=== PATIENT | female | born 1965 | race Caucasian/White ===

== ENCOUNTER 2016-10-18 09:57 | Emergency (ER) | payer BC ==
[2016-10-18 11:01] VITALS: BP 96/61
--- NOTE | 2016-10-18 11:53 | UC ---
Respiratory Complaint HPI - HPI Summary HPI Summary: PATIENT PRESENTS WITH 4 DAYS OF WORSENING THROAT PAIN, SINUS PRESSURE, NAJERA, EAR PAIN AND CONGESTION. COUGH IS PRESENT, BUT WORSE AT NIGHT AND NON-PRODUCTIVE. ENDORSES SICK CONTACTS WHO HAVE HAD URI'S. DENIES HX OF PNA. OTHERWISE HEALTHY. TAKES ESTROGEN THERAPY DAILY. SHE DENIES ALLERGIES. PATIENT ENDORSES DYSPHAGIA AND THROAT REDNESS, BUT DENIES SOB OR CHEST PAIN. - History of Current Complaint Chief Complaint: UCRespiratory Stated Complaint: RESP COMPLAINT Time Seen by Provider: 10/18/16 11:15 Hx Obtained From: Patient ?: No Onset/Duration: Sudden Onset Timing: Constant Severity Initially: Moderate Severity Currently: Moderate Pain Intensity: 7 Pain Scale Used: 0-10 Numeric Character: Cough: Nonproductive Alleviating Factors: Nothing Associated Signs And Symptoms: Positive: Nasal Congestion, Hoarseness, Sinus Discomfort - Risk Factors Pulmonary Embolism Risk Factors: Estrogen Cardiac Risk Factors: Negative Pseudomonas Risk Factors: Negative Tuberculosis Risk Factors: Negative - Allergies/Home Medications Allergies/Adverse Reactions: Allergies Allergy/AdvReac Type Severity Reaction Status Date / Time Sulfa Antibiotics Allergy See Comment Verified 10/18/16 11:00 PMH/Surg Hx/FS Hx/Imm Hx Previously Healthy: Yes - Surgical History Surgical History: None - Family History Known Family History: Positive: Unknown - Social History Occupation: Employed Full-time Lives: With Family Alcohol Use: Daily Alcohol Amount: 1/2 beers Substance Use Type: None Smoking Status (MU): Never Smoked Tobacco Review of Systems Constitutional: Negative Skin: Negative ENT: Sore Throat, Nasal Discharge Respiratory: Cough Cardiovascular: Negative Gastrointestinal: Negative Neurovascular: Negative Musculoskeletal: Negative Neurological: Negative Psychological: Negative All Other Systems Reviewed And Are Negative: Yes Physical Exam Triage Information Reviewed: Yes Appearance: Well-Appearing, No Pain Distress, Well-Nourished Vital Signs: Initial Vital Signs Temp 99.2 F 10/18/16 11:00 Pulse 105 10/18/16 11:00 Resp 16 10/18/16 11:00 BP 96/61 10/18/16 11:00 Pulse Ox 100 10/18/16 11:00 Vital Signs Reviewed: Yes Eyes: Positive: Conjunctiva Inflamed ENT: Positive: Pharyngeal erythema, Nasal congestion, TMs normal, Tonsillar swelling Dental Exam: Normal Neck exam: Normal Neck: Positive: Supple, Nontender, No Lymphadenopathy Respiratory Exam: Normal Respiratory: Positive: Chest non-tender, Lungs clear Cardiovascular Exam: Normal Cardiovascular: Positive: RRR Musculoskeletal Exam: Normal Musculoskeletal: Positive: Strength Intact Neurological Exam: Normal Neurological: Positive: Alert Psychological: Positive: Normal Response To Family Skin Exam: Normal Diagnostic Evaluation - Laboratory O2 Sat by Pulse Oximetry: 100 Respiratory Course/Dx - Course Course Of Treatment: PATIENT PRESENTS WITH ACUTE ONSET NASAL CONGESTION, COUGH, SORE THROAT AND DYSPHAGIA X 4 DAYS. WORSENING SYMPTOMS AT NIGHT. ADVIL FOR RELIEF. DENIES OTHER OTC MEDICATIONS. SHE IS OTHERWISE HEALTHY WITH NO HX OF PNA. PHARYNGEAL ERYTHEMA AND TONSILLAR SWELLING. BILATERAL INJECTED SCLERA WITHOUT DRAINAGE. COUGH IS NON-PRODUCTIVE. SINUS PRESSURE BUT NO SINUS TENDERNESS ON MAXILLARY OR FRONTAL SINUS PERCUSSION. LUNGS CTA. EXPLAINED TO PATIENT LUNGS ARE CTA AND WILL NOT NEED A CHEST XRAY AT THIS TIME. HOWEVER, STREP SWAB PERFORMED FOR PHARYNGEAL ERYTHEMA. PRESCRIBED 5 DAY COURSE OF PREDNISONE D/T DYSPHAGIA AND TONSILLAR ENLARGEMENT. CLARITIN FOR SINUS PRESSURE. MUCINEX ENCOURAGED FOR NON-PRODUCTIVE COUGH WITH PAIN IN CHEST. ROBITUSSIN WITH CODEINE AT NIGHT FOR COUGH. PATIENT OK WITH DISCHARGE. - Differential Dx/Diagnosis Differential Diagnosis/HQI/PQRI: Bronchitis, Influenza, Sinusitis Provider Diagnoses: UPPER RESPIRATORY INFECTION Discharge - Discharge Plan Condition: Stable Disposition: HOME Prescriptions: Loratadine [Claritin 10 MG CAP] 10 mg PO DAILY #15 cap guaiFENesin ER TAB [Mucinex*] 600 mg PO BID #10 tab.er guaiFENesin/CODIEN 100MG-10MG* [Robitussin AC 100Mg-10Mg*] 10 ml PO BEDTIME # 100 udc MDD 10 predniSONE TAB* [Deltasone TAB*] 50 mg PO DAILY #5 tab MDD 1 Patient Education Materials: Upper Respiratory Infection (ED) Referrals: Liv Montalvo MD [Primary Care Provider] - Additional Instructions: FOLLOW UP WITH PCP ROBITUSSIN WITH CODEINE AT NIGHT FOR COUGH MUCINEX IN THE MORNING FOR CONGESTION CLARITIN FOR SINUS PRESSURE AND SYMPTOMS PREDNISONE FOR THROAT PAIN, CONGESTION AND PAIN WITH SWALLOWING. HUMIDIER IN THE HOME WILL HELP WITH SYMPTOMS IF YOUR SYMPTOMS BECOME WORSE, COME BACK TO OR SEE YOUR PCP TYLENOL OR IBUPROFEN FOR ANY DISCOMFORT.
== END 2016-10-18 12:01 | disposition home or self-care (01) ==
LOC: UCEAST 09:57
DX: J06.9 Acute upper respiratory infection, unspecified (principal); Z79.818 Long term (current) use of other agents affecting estrogen receptors and estrogen levels
CPT/HCPCS: 87651; 99212; G0463